=== PATIENT | male | born 1995 | race Two or more races ===

== ENCOUNTER 2019-10-19 16:04 | Emergency (ER) | payer SELFPAY ==
[~2019-10-19] VITALS: Ht 165.1 cm; Wt 87.0 kg
[2019-10-19 16:10] VITALS: BP 117/84
[2019-10-19] MEDS ORDERED: LIDOCAINE-MPF 2% ,5ML ONE (16:44)
[2019-10-19] MEDS ORDERED: DIPH,PERTUSS(ACELL),TET VAC/PF 0.5 ML IM-VACC ONE ×2 (16:45→17:00)
[2019-10-19] MEDS ORDERED: LIDOCAINE 2%, 20ML SQ ONE (17:00)
--- NOTE | 2019-10-19 17:41 | NUR ---
WOUND HAS BEEN CLEANED. PT AWAITING SUTURES.
== END 2019-10-19 18:23 | disposition home or self-care (01) ==
LOC: ED 18:00
DX: S01.511A Laceration without foreign body of lip, initial encounter (principal); W01.0XXA Fall on same level from slipping, tripping and stumbling without subsequent striking against object, initial encounter; Y93.89 Activity, other specified; Y92.89 Other specified places as the place of occurrence of the external cause; Y99.8 Other external cause status
CPT/HCPCS: 12051; 40650; 90471; 90715; 99284